=== PATIENT | female | born 1950 | race Caucasian/White ===

== ENCOUNTER 2016-09-03 21:33 | Emergency (ER) | payer MEDICARE ==
[2016-09-03 21:51] VITALS: BP 144/63
[2016-09-03] MEDS ORDERED: Ciprofloxacin TAB* 250 MG PO ONE (22:38)
--- NOTE | 2016-09-03 22:44 | UC ---
Abdominal Pain Female HPI - HPI Summary HPI Summary: 65 yo female with 3 weeks hx of diarrhea 6-8 x day no n/v no f/c crampy abd pain prior to diarrhea today having some tenesmus no wt loss had stool studies and told her c.diff was (-) taking po well dog has diarrhea as well onset while visiting [place] - History of Current Complaint Chief Complaint: UCGI Stated Complaint: ABD CRAMPING,DIARRHEA Time Seen by Provider: 09/03/16 22:29 Hx Obtained From: Patient Onset/Duration: Gradual Onset, Lasting Weeks Timing: Intermittent Episodes Lasting: - minutes Severity Initially: Moderate Severity Currently: None Pain Intensity: 0 Location: Diffuse Radiates: No Character: Cramping Aggravating Factor(s): Nothing Alleviating Factor(s): Nothing Associated Signs and Symptoms: Positive: Diarrhea Allergies/Adverse Reactions: Allergies Allergy/AdvReac Type Severity Reaction Status Date / Time Doxycycline Allergy Flushing Verified 09/03/16 21:50 PMH/Surg Hx/FS Hx/Imm Hx Previously Healthy: Yes - Surgical History Surgical History: Yes Surgery Procedure, Year, and Place: TUBAL LIGATION. LESION REMOVED FROM LEG- 2014 - Family History Known Family History: Positive: Cardiac Disease, Hypertension - Social History Alcohol Use: None Substance Use Type: None Smoking Status (MU): Former Smoker Type: eCigarettes Amount Used/How Often: 1 ppd Length of Time of Smoking/Using Tobacco: many years When Did the Patient Quit Smoking/Using Tobacco: 2011 Review of Systems Constitutional: Negative Skin: Negative Eyes: Negative ENT: Negative Respiratory: Negative Cardiovascular: Negative Gastrointestinal: Abdominal Pain, Diarrhea Genitourinary: Negative Motor: Negative Neurovascular: Negative Musculoskeletal: Negative Neurological: Negative Psychological: Negative All Other Systems Reviewed And Are Negative: Yes Physical Exam Triage Information Reviewed: Yes Appearance: Well-Appearing, No Pain Distress, Well-Nourished Vital Signs: Initial Vital Signs Temp 98.0 F 09/03/16 21:43 Pulse 76 09/03/16 21:43 Resp 16 09/03/16 21:43 BP 144/63 09/03/16 21:43 Pulse Ox 98 09/03/16 21:43 Eyes: Positive: Conjunctiva Clear ENT: Positive: Hearing grossly normal, Pharynx normal, TMs normal, Other: - moist mucous membranes. Negative: Nasal drainage, Tonsillar exudate, Trismus Dental Exam: Normal Neck: Positive: Supple, Nontender Respiratory: Positive: Lungs clear, Normal breath sounds, No respiratory distress, No accessory muscle use Cardiovascular: Positive: RRR, No Murmur, Pulses Normal Abdomen Description: Positive: Nontender, No Organomegaly, Soft. Negative: Bruit, CVA Tenderness (R), CVA Tenderness (L), Distended, Guarding Bowel Sounds: Positive: Present Musculoskeletal: Positive: ROM Intact, No Edema Neurological: Positive: Alert Psychological Exam: Normal Abd Pain Female Course/Dx - Differential Dx/Diagnosis Provider Diagnoses: acute diarrhea. tenesmus Discharge - Discharge Plan Condition: Stable Disposition: HOME Prescriptions: Ciprofloxacin TAB* [Cipro 250 MG Tab*] 250 mg PO BID #5 tab Patient Education Materials: Acute Diarrhea (ED) Referrals: Georgina Fisher MD [Primary Care Provider] - As Soon As Possible Additional Instructions: you need to try to get in to see your MD to ER for worsening symptoms
== END 2016-09-03 22:50 | disposition home or self-care (01) ==
LOC: UCCORT 21:33
DX: R19.7 Diarrhea, unspecified (principal); R19.8 Other specified symptoms and signs involving the digestive system and abdomen; Z87.891 Personal history of nicotine dependence
CPT/HCPCS: 99212; A9270-GY; G0463

== ENCOUNTER 2018-06-05 07:01 | Emergency (ER) | payer MEDICARE ==
[2018-06-05 07:19] VITALS: BP 128/66
--- NOTE | 2018-06-05 08:01 | UC ---
Skin Complaint HPI - HPI Summary HPI Summary: sore area in her tailbone x 7 days was seen by her pcp , dx with skin infection , was placed on abx not much improvement , getting worse, increase pain and soreness of the area pain is 8 out of 10 , radiating to both legs with numbness and tingling c/o fatigue no fever - History of Current Complaint Chief Complaint: UCSkin Time Seen by Provider: 06/05/18 07:21 Stated Complaint: SKIN CONCERN ON BACK Hx Obtained From: Patient Onset/Duration: Gradual Onset, Lasting Days - 7, Still Present, Worse Since - past 2 days Timing: Constant Onset Severity: Moderate Current Severity: Severe Pain Intensity: 10 Pain Scale Used: 0-10 Numeric Location: Discrete - tailbone Character: Swelling, Pain, Redness, Raised Aggravating Factor(s): Touch Alleviating Factor(s): Nothing Associated Signs & Symptoms: Positive: Numbness, Tenderness. Negative: Nausea, Vomiting, Fever, Chills - Allergy/Home Medications Allergies/Adverse Reactions: Allergies Allergy/AdvReac Type Severity Reaction Status Date / Time doxycycline Allergy Flushing Verified 06/05/18 07:14 Home Medications: Home Medications Amoxicillin/Clavulanate TAB* [Augmentin TAB 875*] 1 tab BID 06/05/18 [History Confirmed 06/05/18] PMH/Surg Hx/FS Hx/Imm Hx Endocrine History: Hypothyroidism - Surgical History Surgical History: Yes Surgery Procedure, Year, and Place: TUBAL LIGATION. LESION REMOVED FROM LEG- 2014 - Family History Known Family History: Positive: Cardiac Disease, Hypertension - Social History Alcohol Use: None Substance Use Type: None Smoking Status (MU): Former Smoker Type: eCigarettes Amount Used/How Often: 1 ppd Length of Time of Smoking/Using Tobacco: many years When Did the Patient Quit Smoking/Using Tobacco: 2011 Review of Systems All Other Systems Reviewed And Are Negative: Yes Constitutional: Positive: Fatigue Skin: Positive: Rash Eyes: Positive: Negative ENT: Positive: Negative Respiratory: Positive: Negative Cardiovascular: Positive: Negative Musculoskeletal: Positive: Myalgia Neurological: Positive: Weakness, Paresthesia, Numbness Is Patient Immunocompromised?: No Physical Exam Triage Information Reviewed: Yes Appearance: Well-Appearing, Well-Nourished, Pain Distress Vital Signs: Initial Vital Signs Temp 97.9 F 06/05/18 07:16 Pulse 86 06/05/18 07:16 Resp 16 06/05/18 07:16 BP 128/66 06/05/18 07:16 Pulse Ox 98 06/05/18 07:16 Vital Signs Reviewed: Yes Eye Exam: Normal Eyes: Positive: Conjunctiva Clear ENT: Positive: Normal ENT inspection, Hearing grossly normal, Pharynx normal Neck exam: Normal Neck: Positive: Supple, Nontender, No Lymphadenopathy Respiratory: Positive: Chest non-tender, Lungs clear, Normal breath sounds Cardiovascular: Positive: RRR, No Murmur, Pulses Normal Abdomen Description: Positive: Nontender, No Organomegaly, Soft Bowel Sounds: Positive: Present Skin: Positive: Rashes - visicular rash, + erythema, tender to touch located at her lower back / tailbone Course/Dx - Diagnoses Provider Diagnosis: Shingles Discharge - Sign-Out/Discharge Documenting (check all that apply): Patient Departure All imaging exams completed and their final reports reviewed: No Studies - Discharge Plan Condition: Stable Disposition: HOME Prescriptions: HYDROcodone/ACETAMIN 5-325 MG* [Meigs 5-325 TAB*] 1 tab PO Q8H PRN #15 tab MDD 3 PRN Reason: Pain ValACYclovir (*) [Valtrex 1 GM(*)] 1 gm PO TID #21 tab Patient Education Materials: Shingles (ED) Referrals: Delmy Ghotra [Primary Care Provider] - 7 Days - Billing Disposition and Condition Condition: STABLE Disposition: Home
[2018-06-07 13:45] LABS: Varicella Zoster Result Positive (Negative); Varicella Zoster Source LOWER BACK
== END 2018-06-05 07:38 | disposition home or self-care (01) ==
LOC: UCCORT 07:01
DX: B02.9 Zoster without complications (principal); F17.290 Nicotine dependence, other tobacco product, uncomplicated; Z88.1 Allergy status to other antibiotic agents
CPT/HCPCS: 87798; 99212; G0463